=== PATIENT | female | born 2000 | race Caucasian/White ===

== ENCOUNTER 2019-04-11 11:28 | Emergency (ER) | payer BC, SELFPAY ==
[2019-04-11 11:30] VITALS: BP 124/69; PULSE 84; RESP 14; TEMP 36.3; O2SAT 98; BMI 38.5
--- NOTE | 2019-04-11 11:45 | ED.VISSUMM ---
- ER Visit Summary Date of Service: 04/11/19 Chief Complaint: Abdominal pain History of Present Illness: The patient is a 19 F with abdominal pain on and off for months. This episode started when she woke up this morning. It started in her right lower quadrant and then migrated to her left lower quadrant. Nothing seemed to bring it on. Worse in certain positions. Nothing seems to make it better. No associated GI symptoms. Denies urinary symptoms. Denies any SENIOR INTEGRATION DEVELOPER symptoms. Denies any fevers. Denies any history of abdominal surgery. Physical Examination: Afebrile and vital signs are unremarkable. Patient alert and oriented. No acute distress. Skin appears normal. Heart regular rate. No respiratory distress. Abdomen is mildly tender in the left lower quadrant. No guarding or rebound. No distention. CVAs nontender Test Results: Basic labs, urine, and test pending. Emergency Department Course and Treatment: Patient declined pain medicine while awaiting results. Will check labs and urine testing. Based on her history, exam, and risk factors, will defer imaging at this time as I do not believe it will be helpful diagnostically. Labs and urinalysis unremarkable. After discussion with the patient, she would like imaging. CT was done and showed a small left ovarian cyst. No further work-up is indicated. Patient will follow-up with her DIRECTOR DIGITAL ANALYTICS. She will be prescribed ibuprofen and Zofran as needed. Return for any new or worsening issues. Treatment Plan: As above Disposition: Discharge Impression: 1. Left ovarian cyst This note was generated with [employer] software. It may contain incorrect words, spelling, and punctuation that were not noted in review of the chart prior to signing
[2019-04-11 12:08] LABS: Absolute Lymphocyte Count 1.95 X10^3/ul (0.83-4.51); Absolute Neutrophil Count 3.7 X10^3/uL (2.0-7.7); Basophil# 0.02 X10^3/uL; Basophil% 0.3 % (0-1); Eosinophil# 0.13 X10^3/uL; Hematocrit 40.4 % (37-47); Hemoglobin 13.7 g/dl (12.0-15.0); Lymphocyte # 1.95 X10^3/ul (4.0); Lymphocyte % 29.7 % (19-41); Mean Corp Hgb Conc 33.9 g/gl (32-36); Mean Corpuscular Hgb 28.4 pg (27.0-32.0); Mean Corpuscular Volume 83.6 fL (81-99); Mean Platelet Vol. 9.4 fl (6.2-12.0); Monocyte# 0.73 X10^3/uL; Monocyte% 11.1 % (0-10); Neutrophil # 3.73 X10^3/uL (2.7-7.7); Neutrophil % 56.7 % (47-70); POSITIVE COUNT NO; POSITIVE DIFFERENTIAL NO; POSITIVE MORPHOLOGY NO; Platelet Count 282 K/mm3 (150-450); RBC Distribution Width CV 12.5 % (11.6-14.6); RBC Distribution Width SD 37.8 fl (35.1-43.9); Red Blood Count 4.83 M/mm3 (4.2-5.4); White Blood Count 6.6 K/mm3 (4.4-11.0)
[2019-04-11 12:24] LABS: AST(SGOT) 17 U/L (15-37); Alanine Aminotransfer ALT/SGPT 25 U/L (13-56); Albumin, Serum 3.5 g/dL (3.2-5.0); Alkaline Phosphatase 100 U/L (45-117); Anion Gap 8 (5-15); BUN 16 mg/dL (7-18); BUN/Creat Ratio 20.9 RATIO (10-20); Calcium,Total 8.8 mg/dL (8.5-10.1); Chloride 108 mmol/L (98-107); Creatinine, Serum 0.77 mg/dL (0.55-1.02); EST Glomerular Filtration Rate 102 mL/min (>60); Est Glom Filt Rate - Afr Amer 124 mL/min (>60); Estimated Creatinine Clearance 87.94 ml/min; Globulin 3.6 g/dL (2.2-4.2); Glucose 87 mg/dL (74-106); Lipase 96 U/L (73-393); Potassium 3.9 mmol/L (3.5-5.1); Protein, Total 7.1 g/dL (6.4-8.2); Sodium Level 143 mmol/L (136-145)
[2019-04-11 12:36] LABS: Bacteria 0 SEEN /hpf (None Seen); Mucous, Urine 0 SEEN /hpf (<or=2+); Red Blood Cells-Urine 0 SEEN /hpf (0-5); Squamous Epithelial Cells - UA 0 SEEN /hpf (5-10); White Blood Cells 0 SEEN /hpf (0-5)
[2019-04-11 13:02] LABS: Internal QC Validated? YES +Cl - CLEAR BKGD; Pregnancy, Urine Negative Negative
[2019-04-11 13:06] LABS: Color, Urine Yellow (Yellow); Glucose, Dipstick Normal (Normal); Ketone-Dipstick Negative (Negative); Leukocyte Esterase-Dipstick Negative /ul (Negative); Nitrite-Dipstick Negative (Negative); Occult Blood-Urine Negative /ul (Negative); Protein-Dipstick Negative (Negative); Urine Bilirubin Dipstick Negative (Negative); Urine Clarity Clear (Clear); Urine Urobilinogen Normal (Normal); Urine pH 6.5 (5.0 - 8.0)
[2019-04-11 13:54] VITALS: RESP 16
--- NOTE | 2019-04-11 14:17 | CT_ITS ---
STUDY: CT ABDOMEN AND PELVIS WITH CONTRAST REASON FOR EXAM: Female, 19 years old. 2 month history of worsening abdominal pain. RADIATION DOSAGE (If Supplied By Facility): CTDIvol = ( 20.50 ) mGy, DLP = ( 1088.53 ) mGycm TECHNIQUE: Transaxial images were obtained from the dome of the diaphragm to the symphysis pubis without oral contrast. 100mL IV Isovue 370 was administered. Sagittal and coronal images were reconstructed. Individualized dose optimization techniques were used for this CT. COMPARISON: None. FINDINGS: The visualized lung bases are unremarkable. The visualized portions of the heart are within normal limits. Normal liver. Normal gallbladder and extrahepatic biliary system. Normal spleen. Normal pancreas. Normal bilateral adrenal glands. Normal right kidney. Normal left kidney. There is a small hiatal hernia. Normal small intestine. Normal colon. The appendix is visualized and appears normal. Normal abdominal aorta. Normal inferior vena cava. Normal retroperitoneum. Normal urinary bladder. There is a 2.4 cm x 1.7 cm cyst in the left ovary. Normal abdominal wall. Normal osseous structures. CT/Abdomen/Pelvis W IV Cont ONLY IMPRESSION: Small left ovarian cyst. Electronically Signed: Bennie Cordova, at 14:52 EDT , Service support ,
--- NOTE | 2019-04-11 15:40 | ED.DEP ---
ED Disposition - Plan for ED Patient: Instructions: Ovarian Cyst Prescriptions: Ibuprofen [Motrin] 800 mg PO TID PRN PRN #20 tab PRN Reason: Pain Prescription Printed Ondansetron [Zofran Odt] 4 mg PO Q8H PRN PRN #10 tab PRN Reason: Nausea Prescription Printed Referrals: Jose A Arevalo MD [Primary Care Provider] - Jose A Vidales MD [STAFF PHYSICIAN] - Additional Instructions: follow up with Dr. Vidales if you need an obgyn
[2019-04-11 15:51] VITALS: BP 107/69; PULSE 86; RESP 18
== END 2019-04-11 15:53 | disposition home or self-care (01) ==
PROVIDERS: Emergency Provider Emergency Medicine; Family Provider Family Medicine; PCP Family Medicine
DX: N83.202 Unspecified ovarian cyst, left side (principal)
CPT/HCPCS: 74177; 80053; 81001; 81025; 83690; 85025; 99283; Q9967; A4216

== ENCOUNTER 2021-08-17 18:50 | Inpatient (IN) | payer BC, MEDICAID, SELFPAY ==
[2021-08-17 19:27] VITALS: BMI 44.0
[2021-08-17] MEDS: Lactated Ringers 1,000 ML 50 ML IV (19:40)
[2021-08-17] MEDS: miSOPROStol 25 MCG TABLET PO (20:04)
[2021-08-17 20:06] LABS: Absolute Lymphocyte Count 1.71 X10^3/uL (0.83-4.51); Absolute Neutrophil Count 6.2 X10^3/uL (2.0-7.7); Basophil# 0.01 X10^3/uL; Basophil% 0.1 % (0-1); Eosinophil# 0.08 X10^3/uL; Eosinophils% 0.9 % (0-5); Hematocrit 31.9 % (37-47); Hemoglobin 10.4 g/dL (12.0-15.0); Lymphocyte # 1.71 X10^3/ul (0.83-4.51); Lymphocyte % 19.3 % (19-41); Mean Corp Hgb Conc 32.6 g/dL (32-36); Mean Corpuscular Hgb 26.6 pg (27.0-32.0); Mean Corpuscular Volume 81.6 fL (81-99); Monocyte# 0.83 X10^3/uL; Monocyte% 9.4 % (0-10); NRBC Flagged by Analyzer 0 % (0-5); Neutrophil # 6.17 X10^3/uL (2.7-7.7); Neutrophil % 69.8 % (47-70); Platelet Count 253 K/mm3 (150-450); RBC Distribution Width CV 14.2 % (11.6-14.6); Red Blood Count 3.91 M/mm3 (4.2-5.4); White Blood Count 8.8 K/mm3 (4.4-11.0)
[2021-08-17 20:14] VITALS: BP 108/67; PULSE 92; TEMP 36.9; O2SAT 98
[2021-08-17 21:28] LABS: Amphetamine Urine VISTA NEGATIVE (<1000 ng/mL); Barbiturate Urine VISTA NEGATIVE (< 200 ng/mL); Benzodiazepine Urine VISTA NEGATIVE (< 200 ng/mL); Cocaine Urine VISTA NEGATIVE (< 300 ng/mL); Ecstacy Urine VISTA NEGATIVE (< 500 ng/mL); Methadone Urine VISTA NEGATIVE (< 300 ng/mL); PCP Urine VISTA NEGATIVE (< 25 ng/mL); THC Urine VISTA NEGATIVE (< 50 ng/mL); Vista UDS pH Range 6
[2021-08-17 23:57] VITALS: BP 116/61; PULSE 77; TEMP 36.6; O2SAT 98
[2021-08-18] VITALS (55 sets, daily range): BP systolic 95–135; BP diastolic 50–82; PULSE 71–120; TEMP 36.4–37.3; O2SAT 97–100
[2021-08-18] MEDS: miSOPROStol 25 MCG TABLET PO ×2 (00:01→04:13)
--- NOTE | 2021-08-18 08:51 | PCM.HP.OB ---
HPI - General General Date of Admission: 08/17/21 HPI Narrative MELISSA MANZO, is a 21 F who presents for induction. Maternal Data Information Final NEDRA: 08/24/21 [facility] PFS Medical History (Updated 08/18/21 @ 08:[address] Mitul Bedoya MD) Asthma Horners syndrome macrosomia Obesity complicating childbirth Home Medications aspirin [Baby Aspirin] 81 mg PO DAILY 08/17/21 [History Last Taken 08/16/21 21:00] famotidine [Pepcid] 20 mg PO DAILY 08/17/21 [History Last Taken 08/16/21 21:00] [id number] [] 1 tab PO DAILY 08/17/21 [History Last Taken 08/16/21 21:00] Allergy/AdvReac Type Severity Reaction Status Date / Time latex AdvReac Rash Verified 08/17/21 19:29 nickel AdvReac Other Verified 08/17/21 19:28 Surgical History (Updated 08/17/21 @ 19:37 by Corine tSewart) History of surgery Social History (Updated 08/18/21 @ 12:[address] Mitul Bedoya MD) Smoking Status: Former smoker substance use type: other details: marijuana positive on initial urine tox History Elective abortions Hx Para 0 Spontaneous abortions Hx # Term Pregnancies Ectopic pregnancies Hx # Pregnancies Multiple births # of living children NST FHR Rate Baby A Baseline: 140 Variability:: Moderate Accelerations:: 15 x 15 Decelerations:: None Uterine Activity:: Occasional Vital Signs Vital Signs Vital Signs: 08/17/21 20:14 08/17/21 23:57 08/18/21 04:15 Temperature 98.5 F 97.8 F 98.8 F Temperature Source Temporal Temporal Temporal Pulse Rate 92 77 Blood Pressure 108/67 116/61 BP Systolic 108 116 BP Diastolic 67 61 Pulse Ox 98 98 97 08/18/21 04:16 08/18/21 06:12 08/18/21 07:20 Temperature 99.0 F 99.0 F Temperature Source Temporal Temporal Pulse Rate 81 83 96 Blood Pressure 120/60 114/58 L 118/71 BP Systolic 120 114 118 BP Diastolic 60 58 71 Pulse Ox 98 08/18/21 08:38 Temperature 98.8 F Temperature Source Temporal Pulse Rate 100 Blood Pressure 119/74 BP Systolic 119 BP Diastolic 74 Pulse Ox Weight Weight: 233 lb 0.458 oz Body Mass Index (BMI) 44.0 Physical Exam Const alert and oriented x3 GI soft to palpation and non-tender Inspection: gravid Narrative: cvx - /-3 Labs Labs Labs: Blood Type A POSITIVE Antibody Screen NEGATIVE Hct 31.9 % (37-47) L Hgb 10.4 g/dL (12.0-15.0) L See [facility] H&P Assessment & Plan (1) Obesity complicating childbirth: COMMENT: @ 39&1 PLAN: Admit to L&D Induction - s/p cytotec. Intracervical pascual placed & will start pitocin COVID negative GBS negative Pain - epidrual as desired EFW - less than 4500g (US at 36wks showed 89% EFW with AC at 99%), patient with adequate pelvis Routine care
[2021-08-18] MEDS: 0.9% Normal Saline Single 100 ML IV.SOLN. INTRA-UTER (08:53)
[2021-08-18] MEDS: Oxytocin 30 units/NS 500 ml 30 UNITS/500 ML IV.SOLN IV (09:38)
[2021-08-18] MEDS: Acetaminophen 500 MG Tablet PO (10:42)
[2021-08-18] MEDS: Lactated Ringers 1,000 ML 50 ML IV (11:20)
[2021-08-18] MEDS: fentaNYL 100 MCG/2 ML Ampul IV (11:44)
[2021-08-18] MEDS: Lactated Ringers 500 ML 999 ML IV ×2 (13:08→15:50)
[2021-08-18] MEDS: fentaNYL-bupivacaine (epidural) 100 ML BAG EPIDURAL ×3 (14:15→23:54)
--- NOTE | 2021-08-18 17:33 | PCM.PN.OB ---
Subjective Subjective Patient comfortable with epidural Objective Data Objective Data Vital Signs: Vital Signs Temp Pulse BP Pulse Ox 98.2 F 88 116/64 99 08/18/21 16:04 08/18/21 16:55 08/18/21 16:55 08/18/21 16:55 Weight: 233 lb 0.458 oz Body Mass Index (BMI) 44.0 Intake & Output: Intake and Output for Last 24 Hours 08/16/21 08/17/21 08/18/21 23:59 23:59 23:59 Intake Total 3967.97 / 3967.97 Output Total 100 / 100 425 / 425 Balance -100 / -100 3542.97 / 3542.97 Lab / Micro Data Result Diagrams: 08/17/21 19:45 Labs: Laboratory Results - last 24 hr 08/17/21 19:45: WBC 8.8, RBC 3.91 L, Hgb 10.4 L, Hct 31.9 L, MCV 81.6, MCH 26.6 L, MCHC 32.6, RDW Std Deviation 41.0, RDW Coeff of Kira 14.2, Plt Count 253, MPV 10.0, Immature Gran % (Auto) 0.500, Neut % (Auto) 69.8, Lymph % (Auto) 19.3, [place] % (Auto) 9.4, Eos % (Auto) 0.9, Baso % (Auto) 0.1, Absolute Neuts (auto) 6.2, Absolute Lymphs (auto) 1.71, Nucleated RBC % 0 08/17/21 19:45: Blood Type A POSITIVE, Antibody Screen NEGATIVE 08/17/21 20:30: Urine Opiates Screen NEGATIVE, Urine Methadone Screen NEGATIVE, Ur Barbiturates Screen NEGATIVE, Ur Phencyclidine Scrn NEGATIVE, Ur Amphetamines Screen NEGATIVE, U Methamphetamin-MDMA NEGATIVE, U Benzodiazepines Scrn NEGATIVE, Urine Cocaine Screen NEGATIVE, U Cannabinoids Screen NEGATIVE, Ur Drug Screen Comment Physical Exam Narrative: cvx - 4/60/-3 NST FHR Rate Baby A Baseline: 135 Variability:: Moderate Accelerations:: 15 x 15 Decelerations:: Variable Uterine Activity:: Irregular Assessment & Plan (1) Obesity complicating childbirth: COMMENT: @ 39&1 PLAN: AROM clear fluid IUPC & FSE placed Continue pitocin induction
[2021-08-18] MEDS: Lactated Ringers 1,000 ML 200 ML IV ×2 (19:11→23:55)
[2021-08-18] MEDS: Ondansetron 4 MG/2 ML Vial IV (20:23)
[2021-08-18] MEDS: 0.9% Saline Lock 10 ML Syringe IV (20:24)
[2021-08-19] VITALS (63 sets, daily range): BP systolic 90–144; BP diastolic 45–82; PULSE 85–117; RESP 15–18; TEMP 36.6–38.2; O2SAT 86–100
[2021-08-19] MEDS: Lactated Ringers 500 ML 999 ML IV (01:00)
[2021-08-19] MEDS: fentaNYL-bupivacaine (epidural) 100 ML BAG EPIDURAL ×2 (04:54→09:25)
[2021-08-19] MEDS: Lactated Ringers 1,000 ML 200 ML IV (05:31)
--- NOTE | 2021-08-19 06:41 | PCM.PN.OB ---
Subjective Subjective Patient feeling come ctxs but has been previously comfortable with her epidural Objective Data Objective Data Vital Signs: Vital Signs Temp Pulse BP Pulse Ox 98.5 F 93 130/62 H 98 08/19/21 06:19 08/19/21 06:19 08/19/21 06:19 08/19/21 06:19 Weight: 233 lb 0.458 oz Body Mass Index (BMI) 44.0 Intake & Output: Intake and Output for Last 24 Hours 08/17/21 08/18/21 08/19/21 23:59 23:59 23:59 Intake Total 5620.33 / 5620.33 2158.10 / 2158.10 Output Total 100 / 100 1375 / 1375 1750 / 1750 Balance -100 / -100 4245.33 / 4245.33 408.10 / 408.10 Lab / Micro Data Result Diagrams: 08/17/21 19:45 Physical Exam Narrative: 4/70/-3, soft & anterior NST FHR Rate Baby A Variability:: Moderate Accelerations:: 15 x 15 Decelerations:: Variable Uterine Activity:: Q 2-3 minutes Assessment & Plan (1) Obesity complicating childbirth: COMMENT: @ 39&1 PLAN: Discussed plan of care with patient. Patient with regular ctxs for about 2 hours. Will continue pitocin & expectant management at this time. Discussed that she made need a if fails to make significant cervical change.
[2021-08-19] MEDS: Acetaminophen 500 MG Tablet PO (10:10)
[2021-08-19] MEDS: Sodium Citrate/Citric Acid 30 ML UDC PO (11:49)
[2021-08-19] MEDS: Cefazolin 2 GM in 0.9% Normal Saline 100 ML IV (12:10)
--- NOTE | 2021-08-19 13:10 | OP.PCM_ITS ---
Problems Associated Problem List Diagnoses (1) 39 weeks gestation of : (2) Primiparous: (3) Failed induction of labor: (4) Failure to progress in labor: (5) Delivery by section: Report of Operation Date of Procedure: 08/19/21 Pre-Operative Diagnosis: 39 week gestation, single IUP, primiparous, failure to progress, failed induction of labor, obesity Post-Operative Diagnosis: As above Surgery/Procedure Performed:: PLTCS via pfannenstiel incision Description of Surgical Findings:: Male infant weighing 8+ pounds. Clear fluid. Normal-appearing uterus, bilateral tubes and ovaries. Normal-appearing placenta. Patient was induced at 39 weeks given her obesity in . An intracervical Chau was placed. On Pitocin the patient progressed to 3 cm. She was ruptured for about 18 hours with no change in cervical dilation. Surgeon: Vivian Nichole cellophane press operator: Eugenio LONGO Type of Anesthesia: Epidural Special Medications: None Specimen's removed: Placenta Drains: Chau Estimated Blood Loss (mL): 700 Fluids Replaced: 1200 cc Description of Procedure: Patient was taken to the operating room. She was placed in dorsal position with a leftward tilt. 1% lidocaine was injected at the incision sites. A Pfannenstiel skin incision was made with a scalpel and this was carried down to the underlying layer of fascia. The fascia was incised in midline. The fascia was extended laterally using Nice scissors. The fascia was dissected off the rectus muscles using a combination of sharp and blunt dissection. The rectus muscles were midline. The peritoneum was entered bluntly with good visualization of the bladder. The incision was extended. A low transverse incision was made in the uterus with a scalpel. Clear fluid was noted. The infant's head was flexed and brought to the hysterotomy. A viable male infant was delivered without any excessive force or delay through the hysterotomy. A viable male infant was delivered atraumatically. The cord was clamped and cut after a slight delay. Infant was handed off to nursery staff. The placenta was removed with manual extraction. Uterus was exteriorized. The uterus was cleared of clot and debris. Hysterotomy was closed with Vicryl in a running locked fashion. Several additional [id number] sutures were placed at the left corner of the hysterotomy for hemostasis. Good hemostasis was noted. Uterus was placed back into the abdomen. Again hemostasis was noted. The peritoneum was closed with Vicryl in a running fashion. The fascia was closed with strata fix in a running fashion. Subcutaneous space was irrigated and made hemostatic with Bovie cautery. Subcutaneous space was reapproximated with Vicryl in a running fashion. The skin was closed with Monocryl in a subcuticular fashion. A dressing was placed. Instrument, sponge, needle counts were correct and the patient was taken to recovery in stable condition. Grafts/Implants Used: None Complications None Admit VTE Documentation VTE Present on Admission: No VTE Mechan Device Prophylaxis: SCD's
[2021-08-19] MEDS: Lactated Ringers 1,000 ML 100 ML IV (13:40)
[2021-08-19] MEDS: Oxytocin 30 units/NS 500 ml 30 UNITS/500 ML IV.SOLN 167 UNITS IV (14:08)
[2021-08-19] MEDS: Ketorolac 30 MG/ML Syringe IV ×2 (14:25→19:45)
--- NOTE | 2021-08-19 14:38 | NURSING ---
on arrival to the room post surgery pt was pOx 86% supplemental O2 was added at 3l pt brought her O2 levels up to 95% O2 taken off and pt decreases to 90% O2 3L brings pt back to 95% pt given an incentive spirometer and shown how to use it.
[2021-08-19] MEDS: Acetaminophen 500 MG Tablet 1000 MG PO (17:55)
[2021-08-19] MEDS: 0.9% Saline Lock 10 ML Syringe IV (19:46)
--- NOTE | 2021-08-19 23:48 | NURSING ---
2340- Pt's Mepilex dressing peeled back in shower and got wet. Maximiliano Reddy CNM called and this RN requested changing dressing as it was soaked with water and not able to be reinforced. Order given to change dressing. Once in pt. room, old dressing was removed and then sterile gloves donned and new mepilex dressing applied. Incision was clean, with minimal to no drainage. No redness and well approximated. Will continue to monitor new dressing.
[2021-08-20 00:50] VITALS: BP 88/49; PULSE 96; RESP 17; TEMP 36.7; O2SAT 94
[2021-08-20] MEDS: Ketorolac 30 MG/ML Syringe IV ×2 (00:50→07:38)
[2021-08-20] MEDS: 0.9% Saline Lock 10 ML Syringe IV ×2 (00:51→07:39)
[2021-08-20] MEDS: Acetaminophen 500 MG Tablet 1000 MG PO ×3 (00:51→11:34)
[2021-08-20] MEDS: Enoxaparin 40 MG/0.4 ML Syringe SC ×2 (01:02→09:56)
[2021-08-20 02:40] VITALS: PULSE 88; RESP 16; O2SAT 95
[2021-08-20 05:25] VITALS: BP 103/65; PULSE 91; RESP 18; TEMP 36.2; O2SAT 97
[2021-08-20 05:41] LABS: Hematocrit 26.4 % (37-47); Hemoglobin 8.5 g/dL (12.0-15.0); Mean Corp Hgb Conc 32.2 g/dL (32-36); Mean Corpuscular Hgb 26.6 pg (27.0-32.0); Mean Corpuscular Volume 82.5 fL (81-99); Mean Platelet Vol. 9.6 fl (6.2-12.0); Platelet Count 179 K/mm3 (150-450); RBC Distribution Width CV 14.4 % (11.6-14.6); RBC Distribution Width SD 42.7 fl (35.1-43.9); White Blood Count 15.2 K/mm3 (4.4-11.0)
--- NOTE | 2021-08-20 07:53 | NURSING ---
All charting by Eileen Keys student nurse reviewed by this RN Eileen Shook.
[2021-08-20 08:27] VITALS: BP 90/43; PULSE 91; RESP 14; TEMP 36.3; O2SAT 97
[2021-08-20] MEDS: Senna/Docusate Sodium 1 Tablet PO (09:56)
[2021-08-20] MEDS: Etonogestrel 68 MG IMPLANT SC (09:56)
--- NOTE | 2021-08-20 10:13 | PCM.PN.OB ---
Subjective Subjective Patient doing well. Possibly desires to go home later today. She is ambulating without any lightheadedness or dizziness. Voiding without difficulty. Tolerating regular diet without nausea or vomiting. Denies chest pain, shortness of breath, leg pain. Lochia normal. She has no complaints. Pain is well controlled. Objective Data Objective Data Vital Signs: Vital Signs Temp Pulse Resp BP Pulse Ox 97.4 F L 91 14 90/43 L 97 08/20/21 08:27 08/20/21 08:27 08/20/21 08:27 08/20/21 08:27 08/20/21 08:27 Oxygen Flow Rate (L/min) 3 Oxygen Delivery Method Room Air Weight: 233 lb 0.458 oz Body Mass Index (BMI) 44.0 Intake & Output: Intake and Output for Last 24 Hours 08/18/21 08/19/21 08/20/21 23:59 23:59 23:59 Intake Total 5620.33 / 5620.33 4741.48 / 4741.48 Output Total 1375 / 1375 3350 / 3350 200 / 200 Balance 4245.33 / 4245.33 1391.48 / 1391.48 -200 / -200 Lab / Micro Data Result Diagrams: 08/20/21 05:30 Labs: Laboratory Results - last 24 hr 08/20/21 05:30: WBC 15.2 H, RBC 3.20 L, Hgb 8.5 L, Hct 26.4 L, MCV 82.5, MCH 26.6 L, MCHC 32.2, RDW Std Deviation 42.7, RDW Coeff of Kira 14.4, Plt Count 179, MPV 9.6 Physical Exam Const alert and no apparent distress General Appearance: comfortable HEENT normocephalic Resp normal respiratory effort GI soft to palpation and non-distended GI Narrative: ATTP, dressing c/d/i Extremity Extremity Narrative: 1+ pitting edema, no calf tenderness Assessment & Plan (1) Delivery by section: PLAN: - POD#1 s/p section for failed induction at 39 weeks for obesity in - Hgb 8.8 with no symptoms of anemia and benign abdominal exam. Pre op Hgb 10.7. Discussed iron supplementation at home and will recheck at 6 week visit - Pain controlled - Dispo: Possible discharge today, she is deciding. Reviewed discharge instructions and follow up (2) Failure to progress in labor: (3) Failed induction of labor:
--- NOTE | 2021-08-20 10:18 | PCM.DC ---
Discharge Instructions Diet Discharge Diet: No restrictions Activity Discharge Activity: May Shower May resume sexual activity in: 6 weeks Ice area for (Minutes): 15 Weight Bearing Status: Weight bearing as tolerated Lifting Restrictions: Nothing heavier than baby Dressing / Incision Call your doctor if your incision/area has: Sudden Increased Bleeding, Increased Pain/ Swelling, Increased Redness, Foul Smelling Discharge and Swelling at the incision site Call your doctor if you observe: Fever of 101 or Higher, Numbness or Tingling, Inability to urinate, Inability to have a bowel movement, Using more than 1 pad per hour, Shortness of breath, Dizziness, Fainting spells, Swelling in the ankles, Chest pain, Increased palpitations (irregular heartbeat), Calf discomfort and Uncontrolled pain Suture Line Care: Avoid Pulling/Pushing and Avoid Pinching/Bending Change Dressing in: leave in place till F/U (Will remove at 1 week appointment. If it is coming off and saturated with water from showeing, ok to remove) Remove Dressing in: leave in place till F/U Cleanse incision/area with: Soap & Water Follow Up Care Please Follow Up With: Dionisio When: 1 week for incision check and 6 weeks for visit Test Results: Test results from this visit will be discussed in further detail at your follow-up appointment, if applicable. Discharge Plan Admission Admit Date/Time: 08/17/21 18:50 Attending Provider: Vivian Nichole Primary Care Provider: Jose A Arevalo Instructions Patient Instructions: After a Discharge Orders/Prescriptions Prescriptions: New ibuprofen 800 mg tablet 800 mg PO Q8H PRN (Reason: pain) Qty: 30 RF: 0 oxycodone-acetaminophen [Percocet] 5-325 mg tablet 1 tab PO Q6H PRN (Reason: pain) 7 Days Qty: 10 RF: 0 docusate sodium [Colace] 100 mg capsule 100 mg PO BID PRN (Reason: constipation) Qty: 30 RF: 0 ferrous sulfate 325 mg (65 mg iron) tablet,delayed release (DR/EC) 325 mg PO DAILY Qty: 30 RF: 0 Continued dpxpszih-lqi-Hu-FA 1 mg Tablet 1 tab PO DAILY RF: 0 Discontinued famotidine [Pepcid] 20 mg Tablet 20 mg PO DAILY RF: 0 aspirin [Baby Aspirin] 81 mg Tablet,Chewable 81 mg PO DAILY RF: 0 Referrals / Follow Up: Jose A Arevalo MD [Primary Care Provider] - Disposition Disposition (needs filled in before D/C Order can be placed): Home, Self Care
--- NOTE | 2021-08-20 10:23 | PCM.OP.BLANK ---
Problems Associated Problem List Diagnoses (1) Nexplanon insertion: Operative Report Date of Procedure: 08/20/21 Procedure: Nexplanon insertion Physician: Vivian Nichole DO The risk, benefits, and alternatives of Nexplanon insertion were discussed with the patient. All questions were answered to her satisfaction. The patient desired to proceed. Consent was signed and placed on the chart. The patient was placed in the dorsal supine position with her nondominant left arm flexed at the elbow and externally rotated. The area for insertion was marked, and prepped with Betadine. 3 cc of 1% lidocaine was injected subdermally along the planned insertion tunnel. Nexplanon applicator was grasped, the protection cap was removed from the applicator and the white Nexplanon device was visualized within the applicator. The applicator needle was inserted subdermally in the standard fashion, the device was deployed. The implant was palpated to verify correct subdermal location. The site was dressed with Steri-Strips and a pressure dressing bandage. User card was completed.
[2021-08-20 12:50] VITALS: BP 101/55; PULSE 92; RESP 16; TEMP 36.5
[2021-08-20] MEDS: Ibuprofen 600 MG Tablet PO (13:11)
[2021-08-20 17:00] VITALS: BP 104/56; PULSE 86; RESP 16; TEMP 36.9
--- NOTE | 2021-08-25 12:43 | NURSING ---
Follow up phone call completed. Patient denies any concerns, had appointment yesterday and feeding well. Has OB appointment tomorrow, denies any redness or drainage from incision.
--- NOTE | 2021-08-27 13:37 | DS.PCM_ITS ---
Providers Date of Admission: 08/17/21 Primary Care Physician: Dr. Jose A Arevalo MD Reason For Visit: PRIMARY C SECTION Diagnosis Discharge Diagnosis (1) Nexplanon insertion: Status: Acute Code(s): Z30.017 - Encounter for initial prescription of implantable subdermal contraceptive (2) Delivery by section: Status: Acute (3) Failure to progress in labor: Status: Acute Code(s): O62.2 - Other uterine inertia (4) 39 weeks gestation of : Status: Acute Code(s): Z3A.39 - 39 weeks gestation of (5) Obesity complicating childbirth: Status: Acute Code(s): O99.214 - Obesity complicating childbirth Medications at Discharge Home Medications bwnmbzvv-ssq-Kp-FA 1 tab PO DAILY 08/17/21 docusate sodium [Colace] 100 mg PO BID PRN #30 cap 08/20/21 ferrous sulfate 325 mg PO DAILY #30 tab 08/20/21 ibuprofen 800 mg PO Q8H PRN #30 tab 08/20/21 oxycodone-acetaminophen [Percocet] 1 tab PO Q6H PRN 7 Days #10 tab 08/20/21 Hospital Course Operations - ( section) Summary of Care Provided Hospital Course: Patient was admitted for a 39-week induction of labor for obesi ty. She had a primary section for failure to progress in labor. See operative report for details. She was discharged home in good condition. She was ambulating and voiding without difficulty. Her pain was well controlled. She was tolerating regular diet. She was instructed to follow-up in the office within 1 week. Weight / BMI Weight Weight: 233 lb 0.458 oz Body Mass Index (BMI) 44.0 ABG / Lab / Microbiology Data Result Diagrams: 08/20/21 05:30 D/C Instructions Discharge Diet: No restrictions May resume sexual activity in: 6 weeks Ice area for (Minutes): 15 Weight Bearing Status: Weight bearing as tolerated Call your doctor if your incision/area has: Sudden Increased Bleeding, Increased Pain/ Swelling, Increased Redness, Foul Smelling Discharge and Swelling at the incision site Call your doctor if you observe: Fever of 101 or Higher, Numbness or Tingling, Inability to urinate, Inability to have a bowel movement, Using more than 1 pad per hour, Shortness of breath, Dizziness, Fainting spells, Swelling in the ankles, Chest pain, Increased palpitations (irregular heartbeat), Calf discomfort and Uncontrolled pain Suture Line Care: Avoid Pulling/Pushing and Avoid Pinching/Bending Cleanse incision/area with: Soap & Water Please Follow Up With: Dionisio When: 1 week for incision check and 6 weeks for visit Meaningful Use Info Meaningful Use Diagnoses (Choose all that apply): None applicable Discharge Plan Admission Admit Date/Time: 08/17/21 18:50 Attending Provider: Vivian Nichole Primary Care Provider: Jose A Arevalo Instructions Patient Instructions: After a Discharge Orders/Prescriptions Prescriptions: New ibuprofen 800 mg tablet 800 mg PO Q8H PRN (Reason: pain) Qty: 30 RF: 0 oxycodone-acetaminophen [Percocet] 5-325 mg tablet 1 tab PO Q6H PRN (Reason: pain) 7 Days Qty: 10 RF: 0 docusate sodium [Colace] 100 mg capsule 100 mg PO BID PRN (Reason: constipation) Qty: 30 RF: 0 ferrous sulfate 325 mg (65 mg iron) tablet,delayed release (DR/EC) 325 mg PO DAILY Qty: 30 RF: 0 Continued fspuxgxc-tqj-Ae-FA 1 mg Tablet 1 tab PO DAILY RF: 0 Discontinued famotidine [Pepcid] 20 mg Tablet 20 mg PO DAILY RF: 0 aspirin [Baby Aspirin] 81 mg Tablet,Chewable 81 mg PO DAILY RF: 0 Referrals / Follow Up: Jose A Arevalo MD [Primary Care Provider] - Disposition Disposition (needs filled in before D/C Order can be placed): Home, Self Care
== END 2021-08-20 18:00 | disposition home or self-care (01) | DRG 788 ==
PROVIDERS: Advanced Practice Midwife; Admitting Provider Obstetrics & Gynecology; PCP Family Medicine; Referring Provider Obstetrics & Gynecology; Visit Provider Obstetrics & Gynecology
DX: O62.2 Other uterine inertia (principal); O61.9 Failed induction of labor, unspecified; O99.214 Obesity complicating childbirth; E66.9 Obesity, unspecified; Z3A.39 39 weeks gestation of pregnancy; Z37.0 Single live birth; Z79.82 Long term (current) use of aspirin; Z87.891 Personal history of nicotine dependence; Z30.017 Encounter for initial prescription of implantable subdermal contraceptive
CPT/HCPCS: 59025; 59050; 80307; 85025; 85027; 86850; 86900; 86901; 99218; 99251; J7120; A4216; G0378; G0463; J2405; J3490

== ENCOUNTER 2021-08-29 05:25 | Emergency (ER) | payer BC, MEDICAID, SELFPAY ==
[2021-08-29 05:26] VITALS: BP 134/83; PULSE 73; RESP 18; TEMP 36.1; O2SAT 100; BMI 39.5
[2021-08-29 05:28] VITALS: BP 134/83; PULSE 73; RESP 18; TEMP 36.1; O2SAT 100
--- NOTE | 2021-08-29 05:39 | EX.ED.DYSGE1 ---
HPI History of Present Illness Chief Complaint: Wound Detail of Chief Complaint: Drainage from wound Informant: patient Onset/Context/Timing Onset: Today Context: Sudden Onset (While sleeping) Timing: Continuous Quality: Sore Location: Right side of incision Current Severity: Moderate Maximum Severity: Moderate Worsened by: Palpation, bending over Relieved by: Remaining still and leaving alone Associated Symptoms Associated Symptoms: No fevers or other systemic symptoms Narrative Narrative: Patient had a about 9 days ago, she has been sore and take medications as prescribed, the soreness got worse overnight, and she woke up with the wound suddenly draining fluid from the right side where the pain is. Denies any injuries to this area. [facility] Medical History Asthma Failed induction of labor Horners syndrome macrosomia Obesity complicating childbirth Home Medications [id number] 1 tab PO DAILY 08/17/21 [History Last Taken 08/16/21 21:00] docusate sodium [Colace] 100 mg PO BID PRN #30 cap 08/20/21 [Rx Last Taken Unknown] ferrous sulfate 325 mg PO DAILY #30 tab 08/20/21 [Rx Last Taken Unknown] ibuprofen 800 mg PO Q8H PRN #30 tab 08/20/21 [Rx Last Taken Unknown] oxycodone-acetaminophen [Percocet] 1 tab PO Q6H PRN 7 Days #10 tab 08/20/21 [Rx Last Taken Unknown] Allergy/AdvReac Type Severity Reaction Status Date / Time latex AdvReac Rash Verified 08/17/21 19:29 nickel AdvReac Other Verified 08/17/21 19:28 Surgical History (Updated 08/28/21 @ 00:00 by Background Daemon) Delivery by section History of surgery Social History Smoking Status: Former smoker substance use type: other details: marijuana positive on initial urine tox ROS ROS ED Constitutional Constitutional ED: Denies chills or fever(s) Eyes Eyes: Denies change in vision or diplopia ENT ENT ED: Denies rhinorrhea or sore throat Cardiovascular Cardiovascular: Denies chest pain or palpitations Respiratory/Chest Respiratory/Chest: Denies cough or dyspnea Gastrointestinal Gastrointestinal: Reports as per HPI and abdominal pain; Denies diarrhea, nausea or vomiting Genitourinary Genitourinary ED: Denies dysuria or hematuria Musculoskeletal Musculoskeletal: Denies back pain or neck pain Integumentary Reports as per HPI and wounds; Denies abscess or rash Neurologic Neurologic: Denies headache(s), paresthesias or weakness Psychiatric Psychiatric: Denies anxiety or suicidal thoughts EXAM Physical Exam Const Vital Signs: 08/29/21 05:26 08/29/21 05:28 Temperature 96.9 F L 96.9 F L Temperature Source Temporal Temporal Pulse Rate 73 73 Respiratory Rate 18 18 Blood Pressure 134/83 H 134/83 H Blood Pressure Mean 100 100 Pulse Ox 100 100 Oxygen Delivery Method Room Air Room Air Positive well nourished and well developed General Appearance ED: well developed and NAD HEENT Reports moist mucous membranes normocephalic and atraumatic Resp normal respiratory effort GI non-distended GI Narrative: Tender right side of incision. There is no erythema, no dehiscence, but there is serosanguineous discharge emanating from that end of the wound, more of it is able to be expressed with gentle pressure applied to the affected area. It does not appear purulent or foul-smelling. The rest of her abdomen is benign. Auscultation: normoactive bowel sounds Palpation: soft Extremity normal to inspection General Extremety ED: Negative for tenderness Neuro oriented x3, CN's II-XII intact bilaterally and no sensory deficits noted Sensorium / Orientation: awake and alert Motor Exam: strength 5/5 throughout Skin no rashes or lesions noted Skin Narrative: wound without dehiscence or erythema, see above for other details. MDM MDM MDM Narrative Medical decision making narrative: Consistent with a seroma on the right side of her incision. We change the dressing put an ABD pad on and instructed the patient for frequent dressing changes and gave her some supplies. I discussed with Lucille Reddy who is on-call for [facility], she agreed with this and close to patient follow-up after the weekend along with Tylenol ibuprofen as needed, the patient is breast-feeding but said that she was prescribed ibuprofen and they told her it was okay to use. Discharge Plan Triage Chief Complaint: Wound ED Provider: Jarrod Thakur Dx/Rx/DC Orders Clinical Impression: section wound seroma, , Encounter for post surgical wound check Instructions: ED Seroma, Postsurgical Prescriptions: No Action [id number] 1 mg Tablet 1 tab PO DAILY RF: 0 ibuprofen 800 mg tablet 800 mg PO Q8H PRN (Reason: pain) Qty: 30 RF: 0 oxycodone-acetaminophen [Percocet] 5-325 mg tablet 1 tab PO Q6H PRN (Reason: pain) 7 Days Qty: 10 RF: 0 docusate sodium [Colace] 100 mg capsule 100 mg PO BID PRN (Reason: constipation) Qty: 30 RF: 0 ferrous sulfate 325 mg (65 mg iron) tablet,delayed release (DR/EC) 325 mg PO DAILY Qty: 30 RF: 0 Primary Care Provider: Jose A Arevalo Referrals: Jose A Arevalo MD [Primary Care Provider] - Vivian Nichole DO [STAFF PHYSICIAN] - 08/31/21 (Call for appointment time) Disposition Disposition: Home, Self Care
[2021-08-29] MEDS: Acetaminophen 500 MG Tablet 1000 MG PO (05:51)
== END 2021-08-29 05:52 | disposition home or self-care (01) ==
PROVIDERS: Emergency Provider Emergency Medicine; PCP Family Medicine
DX: O90.89 Other complications of the puerperium, not elsewhere classified (principal); O99.215 Obesity complicating the puerperium; E66.9 Obesity, unspecified; O99.325 Drug use complicating the puerperium; Z87.891 Personal history of nicotine dependence
CPT/HCPCS: 99283

== ENCOUNTER 2023-09-16 16:17 | Emergency (ER) | payer MEDICAID, SELFPAY ==
[2023-09-16 16:18] VITALS: BP 132/87; PULSE 65; RESP 18; TEMP 36.5; O2SAT 99; BMI 44.6
--- NOTE | 2023-09-16 17:07 | EDS_ITS ---
HPI History of Present Illness HPI Narrative: Patient presents with left shoulder pain that began this morning. Patient states she woke up and noted pain in her left shoulder. Patient describes her pain as sharp. Patient states it has been constant throughout the day today. Patient states it is worse with movement and better with rest. Patient denies any trauma or injury. Patient denies any lifting recently. Patient denies any paresthesias or weakness. Patient denies any radiation of the pain. Chief Complaint: Upper Extremity Injury Informant: patient Onset/Context/Timing Onset: Today Context: Sudden Onset Timing: Continuous Quality of Pain: Sharp Location: Left shoulder Worsened by: Movement Relieved by: Rest Associated Symptoms Associated Symptoms: Negative for Parasthesia, Weakness or Loss of [facility]ion [facility] History Asthma Failed induction of labor Horners syndrome macrosomia Obesity complicating childbirth Home Medications [id number] 1 mg tablet 1 tab PO DAILY 08/17/21 [History Last Taken 08/16/21 21:00] docusate sodium 100 mg capsule (Colace) 100 mg PO BID PRN constipation #30 caps 08/20/21 [Rx Last Taken Unknown] ferrous sulfate 325 mg (65 mg iron) tablet,delayed release 325 mg PO DAILY #30 tabs 08/20/21 [Rx Last Taken Unknown] ibuprofen 800 mg tablet 800 mg PO Q8H PRN pain #30 tabs 08/20/21 [Rx Last Taken Unknown] oxycodone-acetaminophen 5 mg-325 mg tablet (Percocet) 1 tab PO Q6H PRN pain 7 days #10 tabs 08/20/21 [Rx Last Taken Unknown] naproxen 500 mg tablet 500 mg PO BID PRN #20 tabs 09/16/23 [Rx Last Taken Unknown] Allergy/AdvReac Type Severity Reaction Status Date / Time latex AdvReac Rash Verified 09/16/23 16:18 nickel AdvReac Other Verified 09/16/23 16:18 Surgical History Delivery by section History of surgery Social History Smoking Status: Former smoker substance use type: other details: marijuana positive on initial urine tox ROS ROS ED Constitutional Constitutional ED: Denies chills or fever(s) Eyes Eyes: Denies blurry vision or change in vision ENT ENT ED: Denies rhinorrhea or sore throat Cardiovascular Cardiovascular: Reports chest pain; Denies palpitations Respiratory/Chest Respiratory/Chest: Denies cough or dyspnea Gastrointestinal Gastrointestinal: Denies nausea or vomiting Genitourinary Genitourinary ED: Denies dysuria or hematuria Musculoskeletal Musculoskeletal: Reports neck pain; Denies back pain Integumentary Reports rash; Denies abscess Neurologic Neurologic: Denies headache(s) or weakness Allergic/Immunologic Allergic/Immunologic ED: Denies mouth swelling or urticaria EXAM Physical Exam Const Vital Signs: 09/16/23 16:18 Temperature 97.7 F L Temperature Source Temporal Pulse Rate 65 Respiratory Rate 18 Blood Pressure 132/87 H Blood Pressure Mean 102 Pulse Ox 99 Oxygen Delivery Method Room Air Positive well nourished and well developed General Appearance ED: well developed and NAD HEENT Reports moist mucous membranes Neck full ROM and supple Extremity Extremity Narrative: There is tenderness over the posterior aspect of the left shoulder. It is reproducible. There is no edema or ecchymosis noted. There is no erythema or warmth noted. There is no bony crepitance or step-off noted. Range of motion was slightly limited in all motion of the left shoulder secondary to pain. Strength is 5/5 in the radial, median, and ulnar areas. Sensation was intact to light touch in the radial, median, ulnar, and axillary areas. Radial pulses are equal bilaterally. Neuro oriented x3, CN's II-XII intact bilaterally, moves all extremities and no focal motor deficits Motor Exam: strength 5/5 throughout Psych mental status grossly normal MDM MDM MDM Narrative Medical decision making narrative: Differential diagnosis includes muscular strain, occult fracture, tendinitis, and arthritis. X-rays of the left shoulder will be obtained to assess for arthritis and occult fracture. Radiography Diagnostic Testing: X-rays of the left shoulder were obtained. There are 4 views. On my independ ent interpretation, there is no acute fracture or dislocation. There are no degenerative changes noted. Radiologist also interpreted the x-rays and agrees. Treatment and Re-Evaluation Narrative: Patient was advised of her findings. Patient was instructed use ice to the area. Patient was given a dose of Naprosyn here. Patient was given a prescription for Naprosyn. Patient was instructed to follow-up with her primary care physician in 5 to 7 days. Patient understood and was agreeable with the plan. All questions were answered. Discharge Plan Triage Chief Complaint: Upper Extremity Injury ED Provider: Henok Shields Dx/Rx/DC Orders Clinical Impression: Muscle strain of left shoulder region, Morbid obesity with BMI of 40.0-44.9, adult Instructions: ED Muscle Strain, Extremity Prescriptions: New naproxen 500 mg tablet 500 mg PO BID PRN Qty: 20 0RF No Action [id number] 1 mg Tablet 1 tab PO DAILY ibuprofen 800 mg tablet 800 mg PO Q8H PRN (Reason: pain) Qty: 30 0RF oxycodone-acetaminophen [Percocet] 5-325 mg tablet 1 tab PO Q6H PRN (Reason: pain) 7 Days Qty: 10 0RF docusate sodium [Colace] 100 mg capsule 100 mg PO BID PRN (Reason: constipation) Qty: 30 0RF ferrous sulfate 325 mg (65 mg iron) tablet,delayed release (DR/EC) 325 mg PO DAILY Qty: 30 0RF Primary Care Provider: Jose A Arevalo Referrals: Jose A Arevalo MD [Primary Care Provider] - 5-7 Days Disposition Disposition: Home, Self Care
--- NOTE | 2023-09-16 17:20 | RAD_ITS ---
STUDY: X-RAY - LEFT SHOULDER REASON FOR EXAM: Female, 23 years old. Injury/Pain TECHNIQUE: 4 view(s) of the shoulder. COMPARISON: None. FINDINGS: Normal glenohumeral articulation. Normal acromioclavicular joint. Normal acromion. Normal humeral head and visualized proximal humerus. The soft tissue structures are unremarkable. Normal visualized pulmonary apex. Postsurgical changes of the left second third rib are noted with likely prior resection. RAD/Shoulder min 2 Views IMPRESSION: Normal x-ray examination of the shoulder. Postsurgical changes above. Electronically Signed: Luis Miguel DO at 17:36 EST ,
[2023-09-16] MEDS: Naproxen 500 MG Tablet PO (17:26)
[2023-09-16 18:59] VITALS: BP 124/76; PULSE 81; RESP 16; O2SAT 99
== END 2023-09-16 19:01 | disposition home or self-care (01) ==
PROVIDERS: Emergency Provider Emergency Medicine; PCP Family Medicine; Visit Provider Emergency Medicine
DX: S46.912A Strain of unspecified muscle, fascia and tendon at shoulder and upper arm level, left arm, initial encounter (principal); E66.01 Morbid (severe) obesity due to excess calories; Z68.41 Body mass index [BMI] 40.0-44.9, adult; Z87.891 Personal history of nicotine dependence
CPT/HCPCS: 73030; 99282

== ENCOUNTER 2025-01-30 19:58 | Emergency (ER) | payer BC, MEDICAID, SELFPAY ==
[2025-01-30 19:59] VITALS: BP 140/82; PULSE 94; RESP 16; TEMP 36.6; O2SAT 98; BMI 43.3
[2025-01-30 20:00] VITALS: BP 140/82; PULSE 94; RESP 16; TEMP 36.6; O2SAT 98
--- NOTE | 2025-01-30 20:27 | EDS_ITS ---
HPI History of Present Illness HPI Narrative: Patient presents with redness and swelling to the right lower leg that has been getting worse over the past 2 days. Patient states it is gradually getting worse. Patient presents with redness and swelling to the right lower leg that has been getting worse over the past 2 days. Patient states it is gradually getting worse. Patient states it is constant. Patient describes it as aching. Patient states it is worse with standing and walking. Patient states nothing seems to help with it. Patient denies any paresthesias or weakness. Patient denies any fevers or chills. Patient thinks he may have been bitten by a spider but did not see any spider. Chief Complaint: Wound Informant: patient Onset/Context/Timing Onset: Days (2) Context: Gradual Onset Timing: Continuous Quality of Pain: Aching Location: Right lower leg Worsened by: Standing, walking Relieved by: Nothing Associated Symptoms Associated Symptoms: Negative for Parasthesia, Weakness or Loss of Funtion Narrative Tetanus Immunization: <5 years [facility] Medical History Failed induction of labor Obesity complicating childbirth Horners syndrome macrosomia Asthma Home Medications ?Medication ?Instructions ?Recorded ?Last Taken ?Type [id number]-vel-[id number]-FA 1 mg 1 tab PO DAILY pregna ncy 08/17/21 08/16/21 21:00 History tablet docusate sodium 100 mg capsule 100 mg PO BID PRN const ipation #30 08/20/21 Unknown Rx (Colace) caps ferrous sulfate 325 mg (65 mg 325 mg PO DAILY #30 tabs 08/20/21 Unknown Rx iron) tablet,delayed release ibuprofen 800 mg tablet 800 mg PO Q8H PRN pain #30 t abs 08/20/21 Unknown Rx oxycodone-acetaminophen 5 mg-325 1 tab PO Q6H PRN pain 7 days #10 08/20/21 Unknown Rx mg tablet (Percocet) tabs naproxen 500 mg tablet 500 mg PO BID PRN #20 tabs 1 11/16/22 Unknown Rx cephalexin 500 mg capsule 500 mg PO Q6 #40 CAPSULES Unknown Rx Allergy/AdvReac Type Severity Reaction Status Date / Time latex AdvReac Rash Verified 01/30/25 19:59 nickel AdvReac Other Verified 01/30/25 19:59 Surgical History Delivery by section History of surgery Social History household members: children Smoking Status: Former smoker substance use type: other details: marijuana positive on initial urine tox ROS ROS ED Constitutional Constitutional ED: Denies chills or fever(s) Eyes Eyes: Denies blurry vision or change in vision ENT ENT ED: Denies rhinorrhea or sore throat Cardiovascular Cardiovascular: Denies chest pain or palpitations Respiratory/Chest Respiratory/Chest: Reports cough; Denies dyspnea Gastrointestinal Gastrointestinal: Denies nausea or vomiting Genitourinary Genitourinary ED: Denies dysuria or hematuria Musculoskeletal Musculoskeletal: Denies back pain or neck pain Integumentary Reports rash; Denies abscess Neurologic Neurologic: Denies headache(s) or weakness Allergic/Immunologic Allergic/Immunologic ED: Denies mouth swelling or urticaria EXAM Physical Exam Const Vital Signs: 01/30/25 19:59 01/30/25 20:00 Temperature 97.9 F 97.9 F Temperature Source Temporal Temporal Pulse Rate 94 94 Respiratory Rate 16 16 Blood Pressure 140/82 H 140/82 H Blood Pressure Mean 101 101 Pulse Ox 98 98 Oxygen Delivery Method Room Air Room Air Positive well nourished and well developed Constitutional Narrative: BMI is 43.4 General Appearance ED: well developed and NAD HEENT Reports moist mucous membranes normocephalic and atraumatic Neck full ROM and supple Extremity full ROM Neuro oriented x3, CN's II-XII intact bilaterally, moves all extremities and no se nsory deficits noted Sensorium / Orientation: alert Motor Exam: strength 5/5 throughout Skin Skin Narrative: There is erythema and warmth over the medial aspect of the right proximal lower leg. There is a small puncture wound in this area. There is no fluctuance. There is some mild induration. There is no discharge or drainage. MDM MDM MDM Narrative Medical decision making narrative: Patient was advised that this is most likely a cellulitis. I do not feel any abscess that needs to be opened and drained at this time. Patient was given a dose of Keflex here. Patient was given a prescription for Keflex. Patient was instructed use warm compresses to the area. Patient was instructed to follow-up with her primary care physician in 5 to 7 days. Patient was instructed to return if worse in any way. Patient understood and was agreeable with the plan. All questions were answered. Discharge Plan Triage Chief Complaint: Wound ED Provider: Henok Shields Dx/Rx/DC Orders Clinical Impression: Cellulitis of right anterior lower leg, Elevated blood pressure reading without diagnosis of hypertension, BMI 40.0-44.9, adult Instructions: ED Cellulitis Prescriptions: New cephalexin 500 mg capsule 500 mg PO Q6 Qty: 40 0RF No Action [id number] 1 mg Tablet 1 tab PO DAILY ibuprofen 800 mg tablet 800 mg PO Q8H PRN (Reason: pain) Qty: 30 0RF oxycodone-acetaminophen [Percocet] 5-325 mg tablet 1 tab PO Q6H PRN (Reason: pain) 7 Days Qty: 10 0RF docusate sodium [Colace] 100 mg capsule 100 mg PO BID PRN (Reason: constipation) Qty: 30 0RF ferrous sulfate 325 mg (65 mg iron) tablet,delayed release (DR/EC) 325 mg PO DAILY Qty: 30 0RF naproxen 500 mg tablet 500 mg PO BID PRN Qty: 20 0RF Primary Care Provider: Care Physician,No Primary Referrals: Lori Arellano MD [Med Staff - [employer]] - 5-7 Days Care Physician,No Primary [Primary Care Provider] - Print Language: French Disposition Disposition: Home, Self Care
[2025-01-30] MEDS: Cephalexin 500 MG Capsule PO (20:43)
== END 2025-01-30 20:45 | disposition home or self-care (01) ==
LOC: ED 20:43
PROVIDERS: Emergency Provider Emergency Medicine; Visit Provider Emergency Medicine
DX: L03.115 Cellulitis of right lower limb (principal); Z68.41 Body mass index [BMI] 40.0-44.9, adult; Z87.891 Personal history of nicotine dependence; R03.0 Elevated blood-pressure reading, without diagnosis of hypertension; E66.9 Obesity, unspecified; J45.909 Unspecified asthma, uncomplicated
CPT/HCPCS: 99282

== ENCOUNTER 2025-07-05 20:57 | Emergency (ER) | payer SELFPAY ==
[2025-07-05 20:58] VITALS: BP 144/72; PULSE 73; RESP 18; TEMP 36.3; O2SAT 99; BMI 45.1
--- NOTE | 2025-07-05 21:20 | RAD_ITS ---
PROCEDURE: LEFT FOOT MIN 3 VIEWS 07/05/2025 REASON FOR EXAM: PAIN TECHNIQUE: Procedure Code: RADFO Modality: DX Procedure: FOOT MIN 3 VIEWS Laterality: Left COMPARISON: None. FINDINGS: No acute fracture or dislocation. Alignment is anatomic. Preserved joint spaces. Small dorsal and plantar calcaneal spurs. No aggressive osseous lesion. No marked soft tissue swelling. RAD/Foot min 3 Views IMPRESSION: No acute fracture, dislocation, or significant arthrosis. Small plantar calcaneal spur. Reading Location: [facility]
--- OUTSIDE RECORDS SUMMARY | 2025-07-05 22:42 | XMS RPT_ITS | CCD ---
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 01-30-2025 20:00-0400 Respiratory rate 16 /min No Primary Care Physician [facility] 01-30-2025 20:00-0400 SaO2% (BldA) [Mass fraction] 98 % No Primary Care Physician [facility] 01-30-2025 20:00-0400 Systolic blood pressure 140 mm[Hg] No Primary Care Physician [facility] 01-30-2025 19:59-0400 Body height 154.94 cm No Primary Care Physician [facility] 01-30-2025 19:59-0400 Body mass index (BMI) [Ratio] 43.3 kg/m2 No Primary Care Physician [facility] 01-30-2025 19:59-0400 Body weight 104.1 kg No Primary Care Physician [facility] 09-11-2024 09:09-0500 Body mass index (BMI) [Ratio] 42.83 kg/m2 Lisa Watkins MD Work Phone: [facility] 09-11-2024 09:09-0500 Body weight 104.51 kg Lisa Watkins MD Work Phone: [facility] 09-11-2024 09:09-0500 Diastolic blood pressure 74 mm[Hg] Lisa Watkins MD Work Phone: [facility] 09-11-2024 09:09-0500 Systolic blood pressure 110 mm[Hg] Lisa Watkins MD Work Phone: [facility] 09-16-2023 18:59-0500 Diastolic blood pressure 76 mm[Hg] [facility] 09-16-2023 18:59-0500 Heart rate 81 /min [facility] 09-16-2023 18:59-0500 Respiratory rate 16 /min [facility] 09-16-2023 18:59-0500 SaO2% (BldA) [Mass fraction] 99 % [facility] 09-16-2023 18:59-0500 Systolic blood pressure 124 mm[Hg] [facility] 09-16-2023 16:18-0500 Body height 154.94 cm [facility] 09-16-2023 16:18-0500 Body mass index (BMI) [Ratio] 44.6 kg/m2 [facility] 09-16-2023 16:18-0500 Body temperature 97.7 [degF] [facility] 09-16-2023 16:18-0500 Body weight 107.31 kg [facility] 10-12-2022 16:11-0500 Body weight 101.06 kg Kayla Mikael BROACHING MACHINE REPAIRER.AUTOMOTIVE SERVICES MANAGER Work Phone: [facility] 10-12-2022 16:11-0500 Diastolic blood pressure 70 mm[Hg] Kayla Mikael BROACHING MACHINE REPAIRER.AUTOMOTIVE SERVICES MANAGER Work Phone: [facility] 10-12-2022 16:11-0500 Systolic blood pressure 112 mm[Hg] Kayla Mikael BROACHING MACHINE REPAIRER.AUTOMOTIVE SERVICES MANAGER Work Phone: [facility] Encounters Encounter Date Encounter Type Care Provider Facility Start: 01-30-2025 End: 01-30-2025 Emergency department patient visit No Primary Care Physician -Emergency Department Work Phone: Start: 09-11-2024 End: 09-11-2024 ambulatory LISA WATKINS Facility:[facility] Start: 09-11-2024 End: 09-11-2024 Patient encounter procedure Lisa Watkins MD Work Phone: OB/Gynecology Comment on above: Insertion of implant able subdermal contraceptive (Primary Dx) Start: 09-03-2024 End: 09-04-2024 Emergency department patient visit PHYSICIAN [facility] Start: 08-20-2024 End: 08-23-2024 Telephone encounter Kayla Youssef APRN.AUTOMOTIVE SERVICES MANAGER Work Phone: [facility] Comment on above: Orders Start: 09-16-2023 End: 09-16-2023 Emergency department patient visit [facility]-Emergency Department Work Phone: Start: 10-14-2022 End: 10-14-2022 Subsequent hospital visit by physician [facility] Work Phone: Radiology Comment on above: Irregular menstrual bleeding [N92.6] Start: 10-12-2022 End: 10-12-2022 Patient encounter procedure Kayla Youssef APRN.AUTOMOTIVE SERVICES MANAGER Work Phone: OB/Gynecology Comment on above: Irregular menstrual bleeding (Primary Dx) Start: 01-01-2021 End: 12-14-2021 Patient requested procedure Kayla Youssef APRN.AUTOMOTIVE SERVICES MANAGER Work Phone: [facility] Start: 12-20-2019 [facility] Work Phone: Start: 12-18-2019 [facility] Work Phone: Start: 12-14-2019 [facility] Work Phone: Start: 12-13-2019 [facility] Work Phone: Start: 12-03-2019 [facility] Work Phone: Start: 11-26-2019 Patient encounter procedure Darrel Arevalo -[facility] Work Phone: Start: 11-04-2017 End: 11-04-2017 Emergency department patient visit Nodr No Doctor Assigned Facility:[facility] Start: 10-07-2017 Ambulatory JAYA (CARMINE) [facility] Start: 09-19-2015 Ophthalmic examinati on and evaluation Kayla Youssef BROACHING MACHINE REPAIRER.AUTOMOTIVE SERVICES MANAGER Work Phone: [facility] Work Phone: Procedures Date Procedure Procedure Detail Performing Clinician Start: 09-11-2024 UA DIP,URINE HCG (POC) Lisa Watkins MD Work Phone: Start: 09-16-2023 Plain X-ray of shoulder Start: 10-14-2022 Us transvaginal Kayla valladares BROACHING MACHINE REPAIRER.AUTOMOTIVE SERVICES MANAGER Work Phone: Biopsy Darrel Arevalo Excision of neoplasm Darrel nathan Plan of Treatment Date Care Activity Detail Author Start: 06-24-2031 Urine microalbumin profile DTaP,Tdap,Td Vaccine (9 - Td or Tdap) [facility] Start: 05-29-2031 Urine microalbumin profile DTAP,TDAP,TD (2 - Td or Tdap) [facility] Start: 01-30-2025 [facility] Start: 09-04-2024 End: 09-04-2024 Patient encounter procedure 09/04/2024 10:10 AM EST Office Visit OB/Gynecology [address] [place], [place] [id number] Mitul Bedoya MD [address] [place] [place] [address] IUD removal and insert OB/Gynecology Comment on above: IUD removal and inse rt Start: 06-24-2024 Covid-19 Vaccine ( season) Covid-19 Vaccine ( season) [facility] Start: 06-24-2024 Influenza vaccination Influenza Vacc ine (#1) [facility] Start: 01-06-2024 PAP TESTING PAP TESTING [facility] Start: 01-06-2024 Screening for malign ant neoplasm of cervix Cervical Cancer Screening [facility] Start: 09-16-2023 [facility] Start: 06-24-2023 Influenza vaccination Influenza Vacc ine (#1) [facility] Start: 10-24-2022 Depression Assessment Depression Ass essment [facility] Start: 10-12-2022 End: 12-12-2022 Choriogonadotropin.beta subunit [Units/volume] in Serum or Plasma [facility] Work Phone: Comment on above: Expected: 10/12/2022 , Expires: 12/12/2022 Start: 06-24-2022 Influenza vaccination INFLUENZA (#1) [facility] Start: 01-05-2022 CHLAMYDIA SCREENING (18-24) CHLAMYDIA SCREENING (18-24) [facility] Start: 01-05-2022 GC (GONORRHEA) SCREE SUPRIYA (18-24) GC (GONORRHEA) SCREENING (18-24) [facility] Start: 10-24-2021 DEPRESSION ASSESSMENT DEPRESSION ASS ESSMENT [facility] Start: 2017 ANNUAL PCP TEAM FLARE STITCHER [place] DISEASE VISIT ANNUAL PCP TEAM CHRONIC DISEASE VISIT [facility] Start: 2017 Anxiety Screening Anxiety Screening [facility] Start: 2017 Depression Screening Depression Scre ening [facility] Start: 2017 SPIROMETRY SPIROMETRY [facility] Start: 2015 Meningococcal B Vacc ine: Consider Based On Risk (1 of 2 - Patient Seeks Protection) Meningococcal B Vaccine: Consider Based On Risk (1 of 2 - Patient Seeks Protection) [facility] Start: 2013 PEDS TO ADULT TRANSI TION ANNUAL ASSESSMENT PEDS TO ADULT TRANSITION ANNUAL ASSESSMENT [facility] Start: 2011 PEDS TO ADULT TRANSI TION INITIAL DISCUSSION PEDS TO ADULT TRANSITION INITIAL DISCUSSION [facility] Start: 2010 HPV VACCINE (1 - 2-d ose series) HPV VACCINE (1 - 2-dose series) [facility] Start: 2009 MENINGOCOCCAL B: Consider based on risk (1 of 2 - Risk Bexsero 2-dose series) MENINGOCOCCAL B: Consider based on risk (1 of 2 - Risk Bexsero 2-dose series) [facility] Start: 2005 PNEUMOCOCCAL (1 - PCV) PNEUMOCOCCAL (1 - PCV) [facility] Start: 2005 Pneumococcal vaccination Pneum ococcal Vaccine (1 - PCV) [facility] Start: 1999 COVID-19 VACCINE (#1) COVID-19 VACCI NE (#1) [facility] Start: 1999 HEPATITIS B (1 of 3 - 3-dose series) HEPATITIS B (1 of 3 - 3-dose series) [facility] NEXPLANON INSERTION NEXPLANON IN SERTION Procedures Routine Nexplanon insertion Ordered: 08/20/2024 [facility] Comment on above: Ordered: 08/20/2024 NEXPLANON INSERTION NEXPLANON IN SERTION Procedures Routine Insertion of implantable subdermal contraceptive Ordered: 09/11/2024 [facility] Work Phone: Comment on above: Ordered: 09/11/2024 NEXPLANON REMOVAL NEXPLANON MARIANO WILLIAMS Procedures Routine Nexplanon removal Ordered: 08/20/2024 [facility] Work Phone: Comment on above: Ordered: 08/20/2024 Patient Education [facility] Work Phone: Patient referral [facility] Work Phone: End: 11-11-2023 Us transvaginal US FEMALE PELVIS TRANSVAG Radiology Routine Irregular menstrual bleeding 1 Occurrences starting 10/12/2022 until 11/11/2023 [facility] Work Phone: Comment on above: 1 Occurrences starti ng 10/12/2022 until [facility] Immunization Date Immunization Notes Care Provider Fa cili 07-31-2021 Influenza virus vaccine [facility] 07-31-2021 influenza, seasonal, injectable, preservative free Lisa Watkins MD Work Phone: [facility] 07-31-2021 influenza virus vacc ine, unspecified formulation 1 Work Phone: [facility] 06-24-2021 tetanus toxoid, redu ashley diphtheria toxoid, and acellular pertussis vaccine, adsorbed [facility] 05-29-2021 tetanus toxoid, redu ashley diphtheria toxoid, and acellular pertussis vaccine, adsorbed Kayla Youssef APRN.CNP Work Phone: [facility] 10-24-2018 influenza, injectabl e, quadrivalent, preservative free Lisa Watkins MD Work Phone: [facility] 04-29-2015 hepatitis A vaccine, pediatric/adolescent dosage, 2 dose schedule iLsa Watkins MD Work Phone: [facility] 04-29-2015 human papilloma viru s vaccine, quadrivalent Lisa Watkins MD Work Phone: [facility] 01-28-2015 human papilloma viru s vaccine, quadrivalent Lisa Watkins MD Work Phone: [facility] 10-08-2014 hepatitis A vaccine, adult dosage Lisa Watkins MD Work Phone: [facility] 10-08-2014 human papilloma viru s vaccine, quadrivalent Lisa Watkins MD Work Phone: [facility] 10-08-2014 meningococcal polysaccharide (groups A, C, Y and W-135) diphtheria toxoid conjugate vaccine (MCV4P) Lisa Watkins MD Work Phone: [facility] 10-08-2014 tetanus toxoid, redu ashley diphtheria toxoid, and acellular pertussis vaccine, adsorbed Lisa Watkins MD Work Phone: [facility] 08-23-2003 varicella virus vaccine Kelly Watkins MD Work Phone: [facility] 05-17-2003 diphtheria, tetanus toxoids and acellular pertussis vaccine, unspecified formulation Lisa Watkins MD Work Phone: [facility] 05-17-2003 measles, mumps and rubella virus vaccine Lisa Watkins MD Work Phone: [facility] 05-17-2003 poliovirus vaccine, inactivated Lisa Watkins MD Work Phone: [facility] 05-30-2000 diphtheria, tetanus toxoids and acellular pertussis vaccine, unspecified formulation Lisa Watkins MD Work Phone: [facility] 05-30-2000 poliovirus vaccine, inactivated Lisa Watkins MD Work Phone: [facility] 03-28-2000 haemophilus influenz ae type b conjugate and Hepatitis B vaccine Lisa Watkins MD Work Phone: [facility] 03-28-2000 measles, mumps and rubella virus vaccine Lisa Watkins MD Work Phone: [facility] 1999 diphtheria, tetanus toxoids and acellular pertussis vaccine, unspecified formulation Lisa Watkins MD Work Phone: [facility] 1999 haemophilus influenz ae type b vaccine, PRP-OMP conjugate Lisa Watkins MD Work Phone: [facility] 1999 diphtheria, tetanus toxoids and acellular pertussis vaccine, unspecified formulation Lisa Watkins MD Work Phone: [facility] 1999 haemophilus influenz ae type b vaccine, PRP-OMP conjugate Lisa Watkins MD Work Phone: [facility] 1999 poliovirus vaccine, inactivated Lisa Watkins MD Work Phone: [facility] 1999 diphtheria, tetanus toxoids and acellular pertussis vaccine, unspecified formulation Lisa Watkins MD Work Phone: [facility] 1999 haemophilus influenz ae type b vaccine, PRP-OMP conjugate Lisa Watkins MD Work Phone: [facility] 1999 hepatitis B vaccine, pediatric or pediatric/adolescent dosage Lisa Watkins MD Work Phone: [facility] 1999 poliovirus vaccine, inactivated Lisa Watkins MD Work Phone: [facility] 1999 hepatitis B vaccine, pediatric or pediatric/adolescent dosage Lisa Watkins MD Work Phone: [facility] Payers Date Payer Category Payer Self-pay [id number] 2025 Unknown [id number] 2022 [id number] 2021 Unknown [id number] 2021 Medicaid [id number] 2017 Unknown 1999 Unknown [id number] Unknown GENARO [id number] Unknown [id number] Social History Date Type Detail Facility Assertion Tobacco smoking consumption unknown (finding) [facility] Work Phone: Start: 10-12-2022 End: 01-30-2025 Tobacco smoking status NHIS Ex-smoker [facility] Work Phone: Start: 10-24-2013 End: 10-24-2014 History of tobacco use Current smoker [facility] Work Phone: Start: 10-24-2013 End: 10-24-2014 History of tobacco use Cigarette Smoker [facility] Work Phone: Start: 10-12-2022 End: 09-11-2024 Tobacco use and exposure Smokeless tobacco non-user [facility] Work Phone: Start: 10-12-2022 End: 09-11-2024 Alcohol intake Ex-drinker (finding) [facility] Start: 01-01-2020 History SDOH Social Connections Phone 5 [facility] Start: 01-01-2020 History SDOH Social Connections Get Together 3 [facility] Start: 01-01-2020 History SDOH Social Connections Membership 1 [facility] Start: 01-01-2020 History SDOH Social Connections Living 8 [facility] Start: 01-01-2020 History SDOH Physical Activity DPW 0 [facility] Start: 01-01-2020 History SDOH Stress 2 [facility] Start: 01-01-2021 Education 15 [facility] Start: 10-12-2022 Tobacco Comment social smoker [facility] Start: 01-01-2021 Alcohol Comment occasionally [facility] Start: 1999 Sex Assigned At Not on file [facility] Start: 01-01-2020 End: 09-04-2024 History of Social function [facility] Work Phone: Start: 01-01-2020 End: 09-04-2024 Social connection and isolation panel [facility] Work Phone: Do you belong to any clubs or organizations such as hinduism groups, unions, fraternal or athletic groups, or school groups? Yes [facility] Work Phone: Are you now , , , , never or living with a partner? Living with partner [facility] Work Phone: How hard is it for y ou to pay for the very basics like food, housing, medical care, and heating Not hard at all [facility] Work Phone: Do you feel stress - tense, restless, nervous, or anxious, or unable to sleep at night because your mind is troubled all the time - these days [OSQ] Only a little [facility] Work Phone: (I/We) worried wheth er (my/our) food would run out before (I/we) got money to buy more. Never true [facility] Work Phone: Start: 09-16-2023 Tobacco smoking status NHIS Unknown if ever smoked [facility] Start: 2000 Sex Assigned At Female [facility] Start: 01-30-2025 Sex Female (finding) [facility] Medical Equipment Procedure Code Equipment Code Equipment Origin al Text Equipment Identifier Dates Graft Duragen Pl us Bovine Collagen Matrix 5x4in Soft Tissue Patch - [id number] Start: 02-06-2016 Functional Status Date Assessment Result Facility NEGATED: Highlighted row Functional performance Functional status health issues are not documented Disease [facility] Work Phone: Mental Status Date Assessment Result Facility NEGATED: Highlighted row Cognitive function [Interpretation] Cognitive status health issues are not documented Disease [facility] Work Phone: Clinical Notes 01-08-2021 to 09-11-2024 Patient InstructionsLisa Watkins MD - 09/11/2024 9:00 AM ESTTelephone Encounter - Indira Green - 08/21/2024 8:31 AM EDTTelephone Encounter - Tiffany Waters RN - 08/20/2024 10:51 AM EDT Note Date & Type Note Facility 09-11-2024 Instructions Chitra Allen MA - 09/11/2024 9:01 AM EST NEXPLANON PATIENT EDUCATION You may remove dressing in 24 hours. Expect some bruising around insertion site. You may take over the counter pain medication (i.e. Tylenol, motrin, advil, etc) if you have discomfort. Call your provider with excessive bruising or pain. Continue to use condoms for STD prevention. You should use backup contraception for 7 days to prevent . documented in this encounter [facility] 09-11-2024 Note HNO ID: [id number] Author: LISA WATKINS MD Service: ? Author Type: Physician Type: Progress Notes Filed: 09/11/2024 10:59 Note Text: Melissa is a 24 year old patient who presents for Nexplanon insertion. Patient's last menstrual period was 10/12/2022. VITALS: BP 110/74 Wt 230 lb 6.4 oz (104.5kg) LMP 10/12/2022 test: negative Nexplanon lot #: [id number] Exp date: 08/23/2026 [facility]: 88196-233-26 UNIVERSAL PROTOCOL / SAFETY CHECKLIST Procedure to be Performed: Nexplanon Removal and Insertion Sign In: A Moment of CARE was completed. Personnel directly involved with the procedure wore the appropriate PPE (Personal Protective Equipment). Patient/Surrogate Stated/Verified: PATIENT VERIFIED(optional for EMERGENT procedures): Patient name, Date of , Relevant allergies, and The intended procedure Time Out Communication: Intended patient and procedure match the source documents. Consent documented and matches the intended procedure. Sign Out: SIGN OUT (optional for EMERGENT procedures): No specimen collected. TECHNIQUE: Patient placed in supine position with left) bent at the elbow and placed over the head. Skin cleansed with betadine. 2 mL of 1% lidocaine injected subQ along insertion site. Nexplanon clark inserted under sterile technique. After insertion by the provider, the clark was palpable under the skin by both patient and provider. Steristrips and sterile pressure dressing applied. AANDP: Nexplanon inserted without complications. The patient was instructed to remove the dressing after 24 hours. Lisa Watkins MD Melissa is a 24 year old who presents for Nexplanon removal for scheduled 3 year removal. TECHNIQUE: Patient placed in supine position with left arm bent at the elbow and placed over the head. Skin cleansed with betadine. 2mL of 1% lidocaine injected subQ along insertion site. Scalpel used to made a 5mm stab incision superficially at distal end of Nexplanon. Device removed under sterile technique with a small hemostat. Sterile pressure dressing applied. AANDP: 24 year old here for Nexplanon removal Nexplanon removed intact without difficulty. Lisa Watkins MD [facility] 09-11-2024 History of Presen t illness Narrative Melissa is a 24 year old patient who presents for Nexplanon insertion. Patient's last menstrual period was 10/12/2022. VITALS: BP 110/74 Wt 230 lb 6.4 oz (104.5kg) LMP 10/12/2022 test: negative Nexplanon lot #: [id number] Exp date: 08/23/2026 [facility]: 27779-936-14 UNIVERSAL PROTOCOL / SAFETY CHECKLIST Procedure to be Performed: Nexplanon Removal and Insertion Sign In: A Moment of CARE was completed. Personnel directly involved with the procedure wore the appropriate PPE (Personal Protective Equipment). Patient/Surrogate Stated/Verified: PATIENT VERIFIED(optional for EMERGENT procedures): Patient name, Date of , Relevant allergies, and The intended procedure Time Out Communication: Intended patient and procedure match the source documents. Consent documented and matches the intended procedure. Sign Out: SIGN OUT (optional for EMERGENT procedures): No specimen collected. TECHNIQUE: Patient placed in supine position with left) bent at the elbow and placed over the head. Skin cleansed with betadine. 2 mL of 1% lidocaine injected subQ along insertion site. Nexplanon clark inserted under sterile technique. After insertion by the provider, the clark was palpable under the skin by both patient and provider. Steristrips and sterile pressure dressing applied. A&P: Nexplanon inserted without complications. The patient was instructed to remove the dressing after 24 hours. Lisa Watkins MD Melissa is a 24 year old who presents for Nexplanon removal for scheduled 3 year removal. TECHNIQUE: Patient placed in supine position with left arm bent at the elbow and placed over the head. Skin cleansed with betadine. 2mL of 1% lidocaine injected subQ along insertion site. Scalpel used to made a 5mm stab incision superficially at distal end of Nexplanon. Device removed under sterile technique with a small hemostat. Sterile pressure dressing applied. A&P: 24 year old here for Nexplanon removal Nexplanon removed intact without difficulty. Lisa Watkins MD documented in this encounter [facility] 08-21-2024 Telephone encount er Note 1 st attempt left message [facility] 08-21-2024 Miscellaneous Notes Formattin g of this note might be different from the original. 1 st attempt left message PSS: Please contact patient to schedule Nexplanon removal and insertion. Thank you. Tiffany Waters RN Orders filed. Kayla Youssef APRN.AUTOMOTIVE SERVICES MANAGER Nexplanon inserted in hospital after C/S on 08/19/21. Orders pended for Nexplanon removal and insertion. Tiffany Waters RN Patient calling in requesting her nexaplanon to be removed and replaced. Please review and advise. Wendy Nam August 20, 2024 9:33 AM documented in this encounter [facility] 08-20-2024 Telephone encount er Note PSS: Please contact patient to schedule Nexplanon removal and insertion. Thank you. Tiffany Waters RN [facility] 08-20-2024 Telephone encount er Note Orders filed. Kayla Youssef APRN.CNP [facility] Work Phone: 08-20-2024 Telephone encount er Note Nexplanon inserted in hospital after C/S on 08/19/21. Orders pended for Nexplanon removal and insertion. Tiffany Waters RN [facility] 08-20-2024 Telephone encount er Note Patient calling in requesting her nexaplanon to be removed and replaced. Please review and advise. Wendy Nam August 20, 2024 9:33 AM [facility] 10-14-2022 History of Presen t illness Narrative Radiology Service Progress Note PATIENT NAME: Melissa Wilks DATE OF SERVICE: October 14, 2022 TIME: 2:21 PM PATIENT IDENTITY VERIFICATION COMPLETED USING TWO (2) IDENTIFIERS: Name and Date of confirmed by patient verbally. FALL SCREENING: Has the patient had 2 falls in the last year or 1 fall with injury or currently using an Ambulatory Assistive Device (Walker, Cane, Wheelchair, Crutches, etc.)? No PATIENT GENDER DATA: Female. status: : No status: NO. PATIENT RELEVANT IMPLANT DATA REVIEWED: Not Applicable RADIOLOGY DEPARTMENT: Ultrasound PERIPHERAL IV DATA: Not applicable SIGNED BY: Rose Negron RDMS October 14, 2022 2:21 PM documented in this encounter [facility] 10-12-2022 History of Presen t illness Narrative Melissa Wilks is a 22 year old female who presents for problem visit irregular bleeding for several month(s). HPI: irregular bleeding over the past few months. She more intense cramping that goes into her back. She has some bloating and acid reflux Nexplanon place in 08/13. Some concern for . 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 has not used since. Paraspinal mass Schwannoma Left lung PAST SURGICAL HISTORY Procedure Laterality Date DELIVERY ONLY 08/19/2021 LTCS EXC INGROWN TOE NAIL REMOVAL 6 Times EYE SURGERY PROCEDURE Left 04/28/2017 REPAIR BLEPHAROPTOSIS CONJUNCTIVO-TARSO LEVATOR RESECTION (Left) PAST SURGICAL HISTORY OF paraspinal mass debulking PAST SURGICAL HISTORY OF 02/06/2016 tumor removal from spine FAMILY HISTORY Problem Relation Age of Onset other (Melanoma) Mother Hypertension Father Systemic Lupus Erythematosus Sister Allergies Sister Cervical Cancer Maternal Grandmother Lipids Maternal Grandmother Cancer Maternal Grandfather other (lupus) Other half sibling Social History Tobacco Use Smoking status: Former Years: 1.00 Types: Cigarettes Quit date: 2014 Years since quittin.9 Smokeless tobacco: Never Tobacco comments: social smoker Vaping Use Vaping Use: Never used Substance Use Topics Alcohol use: Not Currently Comment: occasionally Drug use: No Current Outpatient Medications Medication Sig etonogestrel (NEXPLANON) 68 mg impl subdermal implant 68 mg by SUBDERMAL route. No current facility-administered medications for this visit. Allergies As of Date: 10/12/2022 Allergen Noted Reaction NICKEL 11/25/2015 Rash Fully Assessed 10/12/2022 REVIEW OF SYSTEMS SEE HPI. Expanded ROS: N/A Allergies and current medication updated:Yes EXAM: Wt 222 lb 12.8 oz (101.1kg) LMP 10/12/2022 GENERAL: pleasant, female in no apparent distress HEENT: Normocephalic, atraumatic, and no lesions CHEST: Normal inspiratory effort NEURO: alert and oriented x3,exam grossly non-focal ASSESSMENT/PLAN: 1. Irregular menstrual bleeding - ICD9: 626.4, ICD10: N92.6 - US FEMALE PELVIS TRANSVAG- if normal will start a low dose OCP - HCG QUANTITATIVE Kayla Youssef APRN.CNP Medical Decision Making: Problems: Moderate: New problem with uncertain prognosis Data: Unique test(s) ordered: 2 Risk: Low: Low risk from testing/treatment Medical Decision Making Level: 3 - Low documented in this encounter [facility] 01-08-2021 History of Past i llness Narrative Problem Noted Date Resolved Date Asymptomatic bacteriuria in in first t rimester 01/08/2021 12/14/2021 Overview: 01/08/21-UTI + ecoli. Keflex for treatment. Urine [place] next visit. Lucille Reddy APRN.CNM Drug use affecting , antepartum, first trimester 01/08/2021 12/14/2021 Overview: 01/08/21-Positive for marijuana on urine tox screen. Advised cessation. Will rescreen at 28 weeks and closer to delivery. Lucille Reddy APRN.CNM Bacterial vaginosis 01/06/2021 12/14/2021 Overview: 01/06/21-BV positive, treat after 12 weeks. Lucille Reddy APRN.CNM Obesity in 01/01/2021 12/14/2021 Overview: 01/01/2021 Patient is obese. We will plan on GCT at new OB. TKRN Patient request for diagnostic testing 12/14/2021 Overview: 01/01/2021atient desires nuchal ultrasound. Declines genetic carrier screening testing.TKRN documented as of this encounter (statuses as of 10/12/2022) [facility] History of Past illness Narrative* Problem Noted Date Diagnosed Date Resolved Date Asymptomatic bacteriuria in in first trimester 01/08/2021 12/14/2021 Overview: 01/08/21-UTI + ecoli. Keflex for treatment. Urine [place]IA next visit. Lucille Reddy APRN.CNM Drug use affecting , antepartum, first trimester 01/08/2021 12/14/2021 Overview: 01/08/21-Positive for marijuana on urine tox screen. Advised cessation. Will rescreen at 28 weeks and closer to delivery. Lucille Reddy APRN.CNM Bacterial vaginosis 01/06/2021 12/14/19 22 Overview: 01/06/21-BV positive, treat after 12 weeks. Lucille Reddy APRN.CNM Obesity in 01/01/2021 022 Overview: 01/01/2021 Patient is obese. We will plan on GCT at new OB. TKRN Patient request for diagnostic testing 01/01/2021 12/14/2021 Overview: 1Patient desires nuchal ultrasound. Declines genetic carrier screening testing.TKRN documented as of this encounter (statuses as of 08/29/2023) [facility] Diagnosis Irregular menstrual bleeding- Primary Irregular menstrual cycle documented in this encounter [facility] Diagnosis Irregular menstrual bleeding Irregular menstrual cycle documented in this encounter [facility] [place] noteNo assessment information availableWWright-[facility] Work Phone: Evaluation note* Diagnosis Nexplanon insertion- Primary Insertion of implantable subdermal contraceptive Nexplanon removal Surveillance of previously prescribed implantable subdermal contraceptive documented in this encounter [facility] Diagnosis Insertion of implantable subdermal contraceptive- Primary [facility] this encounter [facility] Name Dates Details Instructions not documented [facility] [address] Work Phone: Reason for referral (narrative)* Diagnostic Procedure Only (Routine) - Authorized Specialty Diagnoses / Procedures Referred By Laurel lees Referred To Contact US IMAGING Diagnoses Irregular menstrual bleeding Procedures US FEMALE PELVIS TRANSVAG US TRANSVAGINAL Kayla Youssef APRN.CNP [address] [place] [address] Us Imaging Referral ID Status Reason Start Date Expiration Date Visits Requested Visits Authorized [id number] Authorized Auto-Generat ed Referral 11/11/2023 1 1 [facility] for referral (narrative)* Diagnostic Procedure Only (Routine) - Closed Specialty Diagnoses / Procedures Referred By Laurel lees Referred To Contact US IMAGING Diagnoses Irregular menstrual bleeding Procedures US FEMALE PELVIS TRANSVAG US TRANSVAGINAL Kayla Youssef APRN.CNP [address] [place] [address] [place] [address] Referral ID Status Reason Start Date Expiration Date V isits Requested Visits Authorized [id number] Closed Auto-Generate d Referral 10/12/2022 11/11/2023 1 1 [facility] for referral (narrative)* Outpatient Procedure (Routine) - Authorized Specialty Diagnoses / Procedures Referred By Contac t Referred To Contact [facility] Diagnoses Nexplanon insertion Procedures NEXPLANON INSERTION ETONOGESTREL IMPLANT SYSTEM INSERT DRUG IMPLANT DEVICE Kayla Youssef APRN.AUTOMOTIVE SERVICES MANAGER [address] [place] [address] [address] Referral ID Status Reason Start Date Expiration Date Visits Requested Visits Authorized [id number] Authorized Auto-Generat ed Referral 4 08/20/2025 1 1 * Outpatient Procedure (Routine) - Authorized Specialty Diagnoses / Procedures Referred By Laurel t Referred To Contact [facility] Diagnoses Nexplanon removal Procedures NEXPLANON REMOVAL REMOVAL NON-BIODEGRADABLE DRUG DELIVERY IMPLANT Kayla Youssef APRN.AUTOMOTIVE SERVICES MANAGER [address] [place] [address] [address] Referral ID Status Reason Start Date Expiration Date Visits Requested Visits Authorized [id number] Authorized Auto-Generat ed Referral 4 08/20/2025 1 1 [facility] for referral (narrative)* Outpatient Procedure (Routine) - Closed Specialty Diagnoses / Procedures Referred By Contac t Referred To Contact [facility] Diagnoses Insertion of implantable subdermal contraceptive Procedures NEXPLANON INSERTION ETONOGESTREL IMPLANT SYSTEM INSERT DRUG IMPLANT DEVICE Lisa Watkins MD [address] [place] [address] [address] Referral ID Status Reason Start Date Expiration Date V isits Requested Visits Authorized [id number] Closed Auto-Generate d Referral 09/11/2024 09/11/2025 1 1 Medical Center for referral (narrative)No reason for referral information availableWWright-[facility] Work Phone: Summary Purpose Family History No Family History Records Found Mother Name Dates Details Family history of malignant melanoma(V16.8, Z80.8) Status:Active Sister Name Dates Details Family history of Lupus(710. 0, M32.9) Status:Active Advance Directives No Advanced Directives Records Found Advance Directive Response Recorded Date/ Time Living Will No September 16, 023 4:30pm Power of Power House Control Room Operator No September 16, 2023 4:30pm Advance Directive Response Recorded Date/ Time Living Will No January 30, 2025 8:09pm Do you have a Healthcare Power of Power House Control Room Operator? No January 30, 2025 8:09pm Chief Complaint and Reason for Visit Chief Complaint SHOULDER PAIN Chief Complaint Admit Date SPIDER BITE January 30, 2025 7:58 pm Additional Source Comments INFORMATION SOURCE (unrecogn ized section and content) DATE CREATED AUTHOR 04/18/2018 [facility] DATE CREATED AUTHOR AUTHOR'S ORGANIZ ATION 04/18/2018 [facility] DATE CREATED AUTHOR AUTHOR'S ORGANIZ ATION 12/25/2019 [employer] DATE CREATED AUTHOR AUTHOR'S ORGANIZ ATION 04/17/2020 [facility] DATE CREATED AUTHOR AUTHOR'S ORGANIZ ATION 09/11/2024 [facility] DATE CREATED AUTHOR AUTHOR'S ORGANIZ ATION 09/13/2024 [facility] DATE CREATED AUTHOR AUTHOR'S ORGANIZ ATION 02/06/2025 [facility] Source Comments (unrecognize d section and content) In the event this informatio n is protected by the Federal Confidentiality of Alcohol and Drug Abuse Patient Records regulations: The Federal rules restrict any use of the information to criminally investigate or prosecute any alcohol or drug abuse patient.[facility] the event this information is protected by the Federal Confidentiality of Alcohol and Drug Abuse Patient Records regulations: The Federal rules restrict any use of the information to criminally investigate or prosecute any alcohol or drug abuse patient.[facility] Hospital[facility] the event this information is protected by the Federal Confidentiality of Alcohol and Drug Abuse Patient Records regulations: The Federal rules restrict any use of the information to criminally investigate or prosecute any alcohol or drug abuse patient.[facility] Hospital[facility] the event this information is protected by the Federal Confidentiality of Alcohol and Drug Abuse Patient Records regulations: The Federal rules restrict any use of the information to criminally investigate or prosecute any alcohol or drug abuse patient.[facility] Reason for Visit (unrecogniz ed section and content) Reason Comments Discussion Bloating and crampin g with nexplanon along with irregular menses Reason Comments Radiology US Specialty Diagnoses / Procedures Referred By Contac t Referred To Contact US IMAGING Diagnoses Irregular menstrual bleeding Procedures US FEMALE PELVIS TRANSVAG US TRANSVAGINAL Kayla Youssef APRN.AUTOMOTIVE SERVICES MANAGER [address] [place] [address] [facility] [address] Referral ID Status Reason Start Date Expiration Date V isits Requested Visits Authorized [id number] Closed Auto-Generate d Referral 10/12/2022 11/11/2023 1 1 Reason Comments Orders Reason Comments nexplanon removal and insertion Specialty Diagnoses / Procedures Referred By Laurel lees Referred To Contact [facility] Diagnoses Nexplanon insertion Procedures NEXPLANON INSERTION ETONOGESTREL IMPLANT SYSTEM INSERT DRUG IMPLANT DEVICE Kayla Youssef APRN.AUTOMOTIVE SERVICES MANAGER [address] [place] [address] [facility] [address] [place] [address] Referral ID Status Reason Start Date Expiration Date V isits Requested Visits Authorized [id number] Closed Auto-Generate d Referral 08/20/2024 08/20/2025 1 1 Care Teams (unrecognized sec tion and content) Document Design Specialist Relationship Specialty Start Date End Date Darrel Arevalo PCP - General Family Medicine 08/30/12 Document Design Specialist Relationship Specialty Start Date End Date Darrel Arevalo MD PCP - General Family Medicine 08/30/12 Team Status: Active Member Role Status Dates Dr. Darrel Arevalo MD Family Provider Active Dr. Darrel Arevalo MD Primary Care Provider Active Team Status: Inactive Member Role Status Dates Dr. Darrel Arevalo MD Primary Care Provider Active Dr. Henok Shields DO Emergency Provider Active Document Design Specialist Relationship Specialty Start Date End Date Darrel Arevalo MD PCP - General Family Medicine 08/30/12 Document Design Specialist Relationship Specialty Start Date End Date Darrel Arevalo MD PCP - General Family Medicine 08/30/12 Team Status: Active Member Role Status Dates No Primary Care Physician Primary Care Provider Active Team Status: Inactive Member Role Status Dates No Primary Care Physician Primary Care Provider Active Start: January 30, 2025 End: January 30, 2025 Dr. Henok Shields , DO Emergency Provider Active Start: January 30, 2025 End: January 30, 2025 Goals (unrecognized section and content) Goals may be documented in a n alternate sectionGoals may be documented in an alternate section FOR RECORDS PERTAINING TO PATIENTS WHO ARE OR HAVE BEEN ENROLLED IN A CHEMICAL DEPENDENCY/SUBSTANCEABUSE PROGRAM, SOME INFORMATION MAY BE OMITTED. This clinical summary was aggregated from multiple sources. Caution should be exercised in using it in the provision of clinical care. This summary normalizes information from multiple sources, and as a consequence, information in this document may materially change the coding, format and clinical context of patient data. In addition, data may be omitted in some cases. CLINICAL DECISIONS SHOULD BE BASED ON THE PRIMARY CLINICAL RECORDS. [facility] [employer] [facility]. provides no warranty or guarantee of the accuracy or completeness of information in this document.
--- NOTE | 2025-07-05 23:12 | EDS_ITS ---
HPI History of Present Illness HPI Narrative: Patient presents with left foot pain that has been getting worse over the past 3 days. Patient states her pain is mainly over the distal first metatarsal. Patient denies any direct trauma or injury. Patient describes the pain as aching but is sharp with weightbearing. Patient denies any paresthesias or weakness. Patient denies any redness or swelling. Patient denies any fevers or chills. 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 Chief Complaint: Lower Extremity Injury Onset/Context/Timing Onset: Days (3) Context: Gradual Onset Timing: Continuous Quality of Pain: Sharp (With weightbearing) and Aching Location: Left foot Worsened by: Weightbearing Relieved by: Nothing Associated Symptoms Associated Symptoms: Negative for Parasthesia, Weakness or Loss of Funtion [facility] Medical History Failed induction of labor Obesity complicating childbirth Horners syndrome macrosomia Asthma Home Medications ?Medication ?Instructions ?Recorded ?Last Taken ?Type NK 07/05/25 Unknown History Allergy/AdvReac Type Severity Reaction Status Date / Time latex AdvReac Rash Verified 07/05/25 20:58 nickel AdvReac Other Verified 07/05/25 20:58 Surgical History Delivery by section History of surgery Social History household members: children housing: house Smoking Status: Former smoker substance use type: other details: marijuana positive on initial urine tox ROS ROS ED Constitutional Constitutional ED: Denies chills or fever(s) Eyes Eyes: Denies blurry vision or change in vision ENT ENT ED: Denies rhinorrhea or sore throat Cardiovascular Cardiovascular: Denies chest pain or palpitations Respiratory/Chest Respiratory/Chest: Denies cough or dyspnea Gastrointestinal Gastrointestinal: Denies nausea or vomiting Genitourinary Genitourinary ED: Denies dysuria or hematuria Musculoskeletal Musculoskeletal: Reports back pain and neck pain Integumentary Reports rash; Denies abscess Neurologic Neurologic: Denies headache(s) or weakness Allergic/Immunologic Allergic/Immunologic ED: Denies mouth swelling or urticaria EXAM Physical Exam Const Vital Signs: 07/05/25 20:58 Temperature 97.4 F L Temperature Source Temporal Pulse Rate 73 Respiratory Rate 18 Blood Pressure 144/72 H Blood Pressure Mean 96 Pulse Ox 99 Oxygen Delivery Method Room Air Positive well nourished and well developed Constitutional Narrative: BMI is 45.2 General Appearance ED: well developed and NAD HEENT Reports moist mucous membranes Neck full ROM and supple Extremity Extremity Narrative: There is tenderness over the plantar aspect of the left foot near the first MTP joint. There is no erythema or warmth noted. There is no edema or ecchymosis. There is no deformity noted. There is limited range of motion of the first MTP joint. Sensation was intact to light touch in all digits. Capillary refill was less than 2 seconds in all digits. Pedal pulses are equal bilaterally. Neuro oriented x3, CN's II-XII intact bilaterally, moves all extremities and no sensory deficits noted Sensorium / Orientation: alert Motor Exam: strength 5/5 throughout Psych mental status grossly normal [facility] Radiography Diagnostic Testing: Clinical Impression(s) from Imaging Studies Foot X-Ray 07/05/25 21:20 IMPRESSION: No acute fracture, dislocation, or significant arthrosis. Small plantar calcaneal spur. Reading Location: [facility] X-rays of the left foot were obtained. There are 3 views. On my independent interpretation, there is no acute fracture. There is no dislocation. There is no soft tissue swelling. There is a small plantar calcaneal spur noted. Radiologist also interpreted the x-rays and agrees. Treatment and Re-Evaluation Narrative: Patient was apprised of her findings. Patient was instructed to ice and elevate the left foot. Patient was given a postoperative shoe. Patient was instructed to take Tylenol or ibuprofen as needed for pain. Patient was instructed to return if worse in any way. Patient understood and was agreeable with the plan. All questions were answered. Discharge Plan Triage Chief Complaint: Lower Extremity Injury ED Provider: Henok Shields Dx/Rx/DC Orders Clinical Impression: Left foot pain, Body mass index (BMI) of 40.0 to 49.9 Instructions: ED Foot Sprain Prescriptions: No Action NK Stand Alone Forms: Work Status Form Primary Care Provider: Care Physician,No Primary Referrals: Care Physician,No Primary [Primary Care Provider] - Print Language: Portuguese Disposition Disposition: Home, Self Care
[2025-07-05 23:34] VITALS: BP 132/70; PULSE 73; RESP 18; TEMP 36.3; O2SAT 99
== END 2025-07-05 23:35 | disposition home or self-care (01) ==
PROVIDERS: Emergency Provider Emergency Medicine; Visit Provider Emergency Medicine
DX: M79.672 Pain in left foot (principal); Z87.891 Personal history of nicotine dependence; M54.2 Cervicalgia
CPT/HCPCS: 73630; 99283